=== PATIENT | male | born 1980 | race Caucasian/White ===

== ENCOUNTER 2024-03-16 12:29 | Inpatient (IN) | payer OTHER ==
[2024-03-16 13:39] VITALS: BMI 21.8
[2024-03-16] MEDS ORDERED: BENZOCAINE/MENTHOL (CHLORASEPTIC ) LOZENGE MM PRN (16:01)
[2024-03-16] MEDS ORDERED: MAG HYDROX/AL HYDROX/SIMETH 30 ML UNIT-DOSE CUP PO PRN (16:01)
[2024-03-16] MEDS ORDERED: LOPERAMIDE HCL 2 MG CAPSULE PO PRN (16:01)
[2024-03-16] MEDS ORDERED: guaiFENesin 600 MG TABLET.ER (FP) PO PRN (16:01)
[2024-03-16] MEDS ORDERED: ACETAMINOPHEN 325 MG TABLET (FP) PO PRN (16:01)
[2024-03-16] MEDS ORDERED: MAGNESIUM HYDROX 2400MG/30ML ORAL SUSPENSION 30 ML CUP PO PRN (16:01)
[2024-03-16] MEDS ORDERED: NALOXONE (NARCAN) HCL 4 MG/0.1 ML SPRAY NS PRN (16:01)
[2024-03-16] MEDS ORDERED: IBUPROFEN 400 MG TABLET (FP) PO PRN (16:01)
[2024-03-16] MEDS ORDERED: BENZONATATE 200 MG CAPSULE PO PRN (16:01)
[2024-03-16] MEDS ORDERED: POLYETHYLENE GLYCOL (HEALTHYLAX) 3350 17 GM PACKET PO PRN (16:01)
[2024-03-16] MEDS ORDERED: NALOXONE HCL 0.4 MG/ML VIAL IM PRN (16:01)
[2024-03-16] MEDS: NICOTINE 14 MG/24 HOURS TOPICAL PATCH TD SCH (16:28)
[2024-03-16] MEDS: PRENATAL VITAMINS W/ FOLIC ACID TABLET (FP) PO SCH (16:28)
[2024-03-16] MEDS: MELATONIN 5 MG TABLETS PO SCH (21:29)
[2024-03-16] MEDS: THIAMINE 100 MG TABLET PO SCH (21:30)
[2024-03-16] MEDS: TUBERCULIN PPD 5 TU/0.1ML SYRINGE (IN PATIENT USE ONLY) ID ONE (21:30)
[2024-03-17 13:40] LABS: PH,URINE 6.5 (5.0-8.0); URINE APPEARANCE Clear; URINE BILIRUBIN Negative (NEGATIVE); URINE COLOR Yellow; URINE GLUCOSE (UA) Negative (NEGATIVE); URINE KETONE Negative (NEGATIVE); URINE LEUK ESTERASE Negative (NEGATIVE); URINE NITRITE Negative (NEGATIVE); URINE PROTEIN Negative (NEGATIVE); URINE UROBILINOGEN 0.2 mg/dL (0.2-1.0)
[2024-03-17 13:48] LABS: EPI CELLS 3 /uL (0-25.1); HYALINE CASTS 1 /uL (0-3.1); URINE BACTERIA 1 /uL (0-1359); URINE RBC 7 /uL (0-23.9); URINE WBC 4 /uL (0-25.8)
[2024-03-17] MEDS: IBUPROFEN 600 MG TABLET (FP) PO PRN (13:58)
[2024-03-17 16:51] LABS: HEMATOCRIT 38.1 % (35.4-49); HEMOGLOBIN 13.1 GM/dL (11.7-16.9); MCH 32.2 pg (25.7-33.7); MCHC 34.3 g/dl (32.0-35.9); PLATELET COUNT 656 10^3/uL (134-434); RBC 4.06 M/mm3 (4.00-5.60); RDW 12.8 % (11.9-15.9); WHITE BLOOD COUNT 9.8 K/mm3 (4.0-10.0)
[2024-03-17 17:08] LABS: CHLORIDE 104 mmol/L (98-107); POTASSIUM 4.7 mmol/L (3.5-5.1); SODIUM 137 mmol/L (136-145)
[2024-03-17 17:16] LABS: ANION GAP 6 mmol/L (4-13); BLOOD UREA NITROGEN 17.2 mg/dL (7-18); CO2 28 mmol/L (21-32); GLUCOSE,RANDOM 74 mg/dL (74-106)
[2024-03-17 17:17] LABS: ALBUMIN 3.6 g/dl (3.4-5.0)
[2024-03-17 17:18] LABS: BILIRUBIN,TOTAL 0.3 mg/dL (0.2-1); CREATININE 0.6 mg/dL (0.55-1.3); SGPT/ALT 70 U/L (13-61)
[2024-03-17 17:19] LABS: ALK PHOS 223 U/L (45-117); SGOT/AST 46 U/L (15-37); TOT PROT 9.2 g/dl (6.4-8.2)
[2024-03-17 17:35] LABS: SYPHILIS W/ RPR CONF NON-REACTIVE (NONREACTIVE)
[2024-03-18] MEDS: LIDOCAINE 4% PATCH TP SCH (10:57)
[2024-03-18] MEDS: BACLOFEN 10 MG TABLET (FP) PO SCH (10:58)
[2024-03-18] MEDS: LIDOCAINE PATCH REMOVAL MC SCH (21:10)
[2024-03-18] MEDS: METHYL SALICYLATE/MENTHOL OINT 30 GM TUBE TP SCH (21:11)
[2024-03-19 11:49] LABS: INR 1.2 (0.83-1.09); PROTHROMBIN TIME (PATIENT) 13.5 SEC (9.7-13.0)
[2024-03-20] MEDS: hydrOXYzine PAMOATE 25 MG CAPSULE (FP) PO PRN (01:24)
[2024-03-20] MEDS: LACTULOSE 20 GM/30 ML UDC (FOR ORAL USE ONLY) PO SCH (13:41)
[2024-03-20] MEDS: MUPIROCIN 2% TOPICAL OINTMENT 22 GM TUBE TP SCH (14:43)
[2024-03-20] MEDS: DOXYCYCLINE HYCLATE 100 MG CAPSULE PO SCH (17:48)
[2024-03-21] MEDS: DOXYCYCLINE HYCLATE 100 MG TABLET PO SCH (17:41)
[2024-03-25] MEDS: SENNOSIDES 8.6MG TABLET (FP) PO SCH (10:46)
[2024-03-29 07:13] VITALS: PULSE 65
[2024-03-30 06:52] VITALS: BP 104/63; RESP 20; TEMP 97.8
== END 2024-03-30 09:28 | disposition home or self-care (01) | DRG 772 ==
LOC: YASAS 12:29 → Y3W 16:13 → Y3E 03-28 09:41
PROVIDERS: ADMIT Allergy & Immunology; ATTEND Psychiatry & Neurology Pain Medicine
PROC: HZ42ZZZ Group Counseling for Substance Abuse Treatment, Cognitive-Behavioral (ICD-10-PCS; principal; 2024-03-16)
DX: F10.20 Alcohol dependence, uncomplicated (principal); F12.10 Cannabis abuse, uncomplicated; F17.210 Nicotine dependence, cigarettes, uncomplicated; E72.20 Disorder of urea cycle metabolism, unspecified; D68.8 Other specified coagulation defects; R79.89 Other specified abnormal findings of blood chemistry; Z91.81 History of falling
CPT/HCPCS: 36415; 71111-TC-FY; 72100-TC-FY; 80053; 80305; 80307; 81003; 82140; 82652; 83735; 85027; 85610; 86780; 86803; 87811; 93005; 93010; J0475